=== PATIENT | male | born 1975 | race Caucasian/White ===

== ENCOUNTER 2024-04-22 09:53 | Emergency (ER) | payer OTHER ==
[~2024-04-22] VITALS: Ht 175.3 cm; Wt 84.0 kg
[2024-04-22 09:56] VITALS: O2SAT 99
[2024-04-22] MEDS: MORPHINE SULFATE 4 MG/ML INJ (FOR IV/IM USE) IV STA (12:00)
[2024-04-22] MEDS: ONDANSETRON HCL 4MG/2ML INJ IV STA (12:00)
[2024-04-22] MEDS: SODIUM CHLORIDE 0.9% 250 ML IV ONE (12:00)
[2024-04-22 12:16] LABS: BASOPHILS % 0.5 % (0.0-2.0); HEMATOCRIT. 41.6 % (42.0-52.0); HEMOGLOBIN. 13.6 g/dL (14.0-18.0); LYMPHOCYTES % 8.6 % (20.0-50.0); MEAN CORPUSCULAR HEMOGLOBIN 27.7 pg (28.0-32.0); MEAN CORPUSCULAR HGB CONC 32.5 g/dL (31.0-37.0); MEAN PLATELET VOLUME 8.1 fl (7.4-10.4); MONOCYTES % 3.2 % (2.0-8.0); NEUTROPHILS % 83.7 % (40.0-76.0); PLATELET 252 x1000/uL (130-400); RED CELL DISTRIBUTION WIDTH 16.3 % (11.6-14.6); WHITE BLOOD COUNT 11.9 x1000/uL (4.5-11.0)
[2024-04-22 12:20] LABS: CLARITY URINE CLEAR (CLEAR); COLOR URINE YELLOW (YELLOW); GLUCOSE URINE 3+ (NEGATIVE); KETONES URINE NEGATIVE (NEGATIVE); LEUKOCYTE ESTERASE URINE NEGATIVE (NEGATIVE); NITRITE URINE NEGATIVE (NEGATIVE); OCCULT BLOOD URINE 1+ (NEGATIVE); PH URINE 6.5 (4.5-8.0); PROTEIN URINE 2+ (NEGATIVE); SPECIFIC GRAVITY URINE 1.013 (1.005-1.030); UROBILINOGEN URINE 0.2 E.U./dL (0.2-1.0)
[2024-04-22 12:22] LABS: CARBON DIOXIDE 19 mEq/L (21-32); CHLORIDE 105 mEq/L (98-107); POTASSIUM 4.3 mEq/L (3.5-5.1); SODIUM 134 mEq/L (136-145)
[2024-04-22 12:23] LABS: CALCIUM 9.6 mg/dL (8.7-10.4)
[2024-04-22 12:27] LABS: CREATININE 1.6 mg/dL (0.6-1.3)
[2024-04-22 12:28] LABS: GLUCOSE 111 mg/dL (70-105); TROPONIN I HIGH SENSITIVITY 22 ng/L (3.0-53); UREA NITROGEN BLOOD 31 mg/dL (9-23)
[2024-04-22 12:29] LABS: ALANINE AMINOTRANSFERASE 32 IU/L (10-49); ASPARTATE AMINOTRANSFERASE 26 IU/L (<34)
[2024-04-22 12:30] LABS: ALBUMIN 4.7 g/dL (3.2-4.8); BILIRUBIN DIRECT 0.3 mg/dL (<=3.0); BILIRUBIN TOTAL 0.8 mg/dL (0.1-1.0); PROTEIN TOTAL 8.5 g/dL (6.0-8.3)
[2024-04-22 12:31] LABS: BACTERIA URINE FEW; SQUAMOUS EPITHELIAL CELL URINE FEW /lpf (RARE/1+); YEAST URINE NONE SEEN
[2024-04-22 12:45] LABS: *AMPHETAMINES SCREEN URINE PRESUMPTIVE POSITIVE (NEGATIVE); *BARBITURATES SCREEN URINE NEGATIVE (NEGATIVE); *BENZODIAZEPINES SCREEN URINE NEGATIVE (NEGATIVE); *COCAINE SCREEN URINE NEGATIVE (NEGATIVE); CANNABINOID URINE SCREEN NEGATIVE (NEGATIVE); ECSTASY MDMA SCREEN URINE NEGATIVE (NEGATIVE); METHADONE URINE SCREEN NEGATIVE (NEGATIVE); OPIATES URINE SCREEN PRESUMPTIVE POSITIVE (NEGATIVE); PHENCYCLIDINE URINE SCREEN NEGATIVE (NEGATIVE)
[2024-04-22 13:21] LABS: ETHANOL BLOOD < 10 mg/dL (<10)
[2024-04-22] MEDS ORDERED: IOHEXOL-300 100 ML BOTTLE ONE (14:44)
[2024-04-22] MEDS: KETOROLAC 15MG/ML VIAL IV ONE (15:00)
[2024-04-22] MEDS: PIPERACILLIN/TAZO 3.375G/50ML 50 ML IV STA (15:00)
[2024-04-22 15:40] VITALS: BP 113/73; PULSE 71; RESP 15; TEMP 98.6
== END 2024-04-22 16:03 | disposition short-term general hospital (02) ==
LOC: ER 09:53 → CANBEDREQ 15:29 → ER 16:03
DX: R55 Syncope and collapse (principal); M54.50 Low back pain, unspecified; F17.200 Nicotine dependence, unspecified, uncomplicated; E11.9 Type 2 diabetes mellitus without complications; I11.0 Hypertensive heart disease with heart failure; I50.9 Heart failure, unspecified; N28.9 Disorder of kidney and ureter, unspecified; E78.00 Pure hypercholesterolemia, unspecified
CPT/HCPCS: 80076; 80305; 80048; 81003; 80320; 83880; 83605; 83690; 85025; 85610; 87040; 84484; 36415; 84145; 71045; 70450; 74177; 93005; 96361; 96365; 96375; 99285; Q9967; J1885; J2405; J2543; J2270; J7050; Z7610 ×3; G0480

== ENCOUNTER 2024-05-01 13:16 | Emergency (ER) | payer OTHER ==
[~2024-05-01] VITALS: Ht 175.3 cm; Wt 80.0 kg
[2024-05-01 13:18] VITALS: O2SAT 98
[2024-05-01] MEDS: HYDROCODONE/ACETAMINOPHEN 10/325MG TABLET PO ONE (14:47)
[2024-05-01] MEDS: LIDOCAINE 5% PATCH TOP SCH (14:48)
[2024-05-01] MEDS: CYCLOBENZAPRINE 10MG TABLET PO NR (17:00)
[2024-05-01] MEDS ORDERED: CYCLOBENZAPRINE 10MG TABLET PO ONE (17:00)
[2024-05-01] MEDS ORDERED: LIDO700A15 TP (17:35)
[2024-05-01] MEDS ORDERED: CYCL10TA21 MT (17:35)
[2024-05-01 18:57] VITALS: BP 127/73; PULSE 68; RESP 15; TEMP 98.5
== END 2024-05-01 18:58 | disposition home or self-care (01) ==
LOC: ER 13:16
DX: M54.9 Dorsalgia, unspecified (principal); I11.0 Hypertensive heart disease with heart failure; I50.9 Heart failure, unspecified; E11.9 Type 2 diabetes mellitus without complications; N28.9 Disorder of kidney and ureter, unspecified
CPT/HCPCS: 99283; Z7610 ×3

== ENCOUNTER 2024-10-02 18:46 | Emergency (ER) | payer OTHER ==
[~2024-10-02] VITALS: Ht 180.3 cm; Wt 83.0 kg
[~2024-10-02 18:46] MED LIST: CYCL10TA21 MT; LIDO700A15 TP
[2024-10-02 18:53] VITALS: BP 146/78; PULSE 90; RESP 18; TEMP 98.6; O2SAT 98
== END 2024-10-02 22:31 | disposition left against medical advice (07) ==
LOC: ER 18:46
DX: M54.9 Dorsalgia, unspecified (principal); Z53.21 Procedure and treatment not carried out due to patient leaving prior to being seen by health care provider